=== PATIENT | male | born 1990 | race Caucasian/White ===

== ENCOUNTER 2017-03-03 19:45 | Emergency (ER) | payer OTHER ==
[~2017-03-03] VITALS: Ht 177.8 cm; Wt 99.8 kg
[2017-03-03 19:45] VITALS: BP 124/71
== END 2017-03-03 21:10 | disposition home or self-care (01) ==
LOC: ER 19:49
DX: S62.627A Displaced fracture of middle phalanx of left little finger, initial encounter for closed fracture (principal); W51.XXXA Accidental striking against or bumped into by another person, initial encounter; Y93.61 Activity, american tackle football; Y92.89 Other specified places as the place of occurrence of the external cause; Y99.8 Other external cause status
CPT/HCPCS: 29130; 73140; 99284; A4606; Z7610